=== PATIENT | male | born 1985 | race Caucasian/White ===

== ENCOUNTER 2017-07-11 22:22 | Emergency (ER) | payer OTHER, MEDICAID ==
--- NOTE | 2017-07-11 22:32 | EDPHY ---
H & P Stated Complaint: chills/sweats since Saturday HPI/ROS: HPI CHIEF COMPLAINT: Chills and sweats since Saturday. Muscle aches. Joint pain. HISTORY OF PRESENT ILLNESS: This patient is a 32-year-old male he has significant past medical history bipolar disorder he presents emergency room with approximately 5 days of chills, nighttime sweats, muscle aches and joint pain. Feels like he may have the flu. Additionally reports a cough that is nonproductive. He denies any chest pain or shortness of breath. Denies abdominal pain or back pain. His main complaint is generalized fatigue, chills hot cold flashes. Additionally patient reports sinus congestion. Past Medical History: Bipolar disorder Past Surgical History: No recent surgery. History are wisdom tooth removal. Social History: Denies daily use of tobacco. Endorses marijuana daily as well as alcohol 6 beers per day. Family History: Noncontributory ROS REVIEW OF SYSTEMS: A comprehensive 10 point review of systems is otherwise negative aside from elements mentioned in the history of present illness. Exam Constitutional appears well nontoxic, triage nursing summary reviewed, vital signs reviewed, awake/alert. Eyes normal conjunctivae and sclera, EOMI, PERRLA. HENT normal inspection, atraumatic, moist mucus membranes, no epistaxis, neck supple/ no meningismus, no raccoon eyes. Respiratory clear to auscultation bilaterally, normal breath sounds, no respiratory distress, no wheezing. Cardiovascular rate normal, regular rhythm, no murmur, no edema, distal pulses normal. Gastrointestinal soft, non-tender, no rebound, no guarding, normal bowel sounds, no distension, no pulsatile mass. Genitourinary no CVA tenderness. Musculoskeletal no midline vertebral tenderness, full range of motion, no calf swelling, no tenderness of extremities, no meningismus, good pulses, neurovascularly intact. Skin pink, warm, & dry, no rash, skin atraumatic. Neurologic awake, alert and oriented x 3, AAOx3, moves all 4 extremities equally, motor intact, sensory intact, CN II-XII intact, normal cerebellar, normal vision, normal speech. Psychiatric normal mood/affect. Heme/Lymph/Immune no lymphadenopathy. Differential Diagnosis: Includes but is not limited to in a particular order, viral syndrome, influenza, electrolyte disturbance, dehydration, pneumonia, infection Medical Decision Making: Plan for this patient IV establishment IV fluid bolus , 2 L normal saline, check basic blood work, check influenza, chest x-ray two view to rule out pneumonia, and re-evaluate. Re-evaluation: EKG interpretation by me on record in [facility] system. Impression time of EKG 2301 this is sinus rhythm rate of 74. Left anterior fascicular block present. Otherwise no acute ischemia. No signs of cardiac arrhythmia. Reason for this EKG patient complains of tachycardia. No chest pain. 1221: I did re-evaluate this patient this time is feeling much better. He denies any chest pain or significant shortness of breath. His blood work has been reviewed. Negative influenza. No high white count. Chest x-ray is also been reviewed shows no focal pneumonia bronchitis. Will place this patient on azithromycin sinusitis, albuterol for bronchitis. He understands return emergency room if develops worsening symptoms questions or concerns. He understands drink lots of fluids stay well-hydrated. Source: Patient - Personal History Current Tetanus/Diphtheria Vaccine: Yes Tetanus Vaccine Date: 2010 - Medical/Surgical History Hx Asthma: No Hx Chronic Respiratory Disease: No Hx Diabetes: No Hx Cardiac Disease: No Hx Renal Disease: No Hx Cirrhosis: No Hx Alcoholism: No Hx HIV/AIDS: No Hx Splenectomy or Spleen Trauma: No Other PMH: Surgical- [place] teeth, I&D abscess neck. Medical- Bipolar, anxiety - Social History Smoking Status: Former smoker Constitutional: Initial Vital Signs Temperature (C) 36.7 C 07/11/17 22:24 Heart Rate 85 07/11/17 22:24 Respiratory Rate 18 07/11/17 22:24 Blood Pressure 169/103 H 07/11/17 22:24 O2 Sat (%) 99 07/11/17 22:24 O2 Delivery Mode Room Air Allergies/Adverse Reactions: No Known Allergies Allergy (Verified 08/16/13 11:38) Home Medications: Medication Instructions Recorded [place] Carbonate [[place] 600 mg PO BIDDIUR 09/10/12 Carbonate Cap 300 mg (RX)] clonIDINE [Catapres (RX)] 0.1 mg PO HS 09/10/12 Ambien 07/11/17 Cyproheptadine HCl 07/11/17 Valium 07/11/17 AZITHROMYCIN [Z-PACK] 250 mg PO DAILY #6 tab 07/12/17 Medical Decision Making - Diagnostics Imaging Results: Imaging Impressions Chest X-Ray 07/11/17 22:38 Impression: Mild perihilar bronchitis, without a focal infiltrate. - Data Points Laboratory Results: Laboratory Results 07/11/17 23:10 07/11/17 23:10 07/11/17 07/11/17 07/11/17 23:10 23:10 22:45 WBC 10.93 10^3/uL H 10^3/uL (3.80-9.50) RBC 5.01 10^6/uL 10^6/uL (4.40-6.38) Hgb 16.5 g/dL g/dL (13.7-17.5) Hct 45.1 % % (40.0-51.0) MCV 90.0 fL fL (81.5-99.8) MCH 32.9 pg pg (27.9-34.1) MCHC 36.6 g/dL g/dL (32.4-36.7) RDW 11.9 % % (11.5-15.2) Plt Count 317 10^3/uL 10^3/uL (150-400) MPV 9.3 fL fL (8.7-11.7) Neut % (Auto) 71.5 % % (39.3-74.2) Lymph % (Auto) 20.7 % % (15.0-45.0) Luce % (Auto) 5.3 % % (4.5-13.0) Eos % (Auto) 1.6 % % (0.6-7.6) Baso % (Auto) 0.6 % % (0.3-1.7) Nucleat RBC Rel Count 0.0 % % (0.0-0.2) Absolute Neuts (auto) 7.82 10^3/uL H 10^3/uL (1.70-6.50) Absolute Lymphs (auto) 2.26 10^3/uL 10^3/uL (1.00-3.00) Absolute Monos (auto) 0.58 10^3/uL 10^3/uL (0.30-0.80) Absolute Eos (auto) 0.17 10^3/uL 10^3/uL (0.03-0.40) Absolute Basos (auto) 0.07 10^3/uL 10^3/uL (0.02-0.10) Absolute Nucleated RBC 0.00 10^3/uL 10^3/uL (0-0.01) Immature Gran % 0.3 % % (0.0-1.1) Immature Gran # 0.03 10^3/uL 10^3/uL (0.00-0.10) Sodium 138 mEq/L mEq/L (134-144) Potassium 3.4 mEq/L L mEq/L (3.5-5.2) Chloride 104 mEq/L mEq/L (97-110) Carbon Dioxide 17 mEq/l L mEq/l (22-31) Anion Gap 17 mEq/L H mEq/L (8-16) BUN 9 mg/dL mg/dL (7-23) Creatinine 1.0 mg/dL mg/dL (0.7-1.3) Estimated GFR > 60 Glucose 116 mg/dL H mg/dL (70-100) Calcium 10.2 mg/dL mg/dL (8.5-10.4) Total Bilirubin 0.5 mg/dL mg/dL (0.1-1.4) Conjugated Bilirubin 0.2 mg/dL mg/dL (0.0-0.5) Unconjugated Bilirubin 0.3 mg/dL mg/dL (0.0-1.1) AST 25 IU/L IU/L (17-59) ALT 56 IU/L IU/L (21-72) Alkaline Phosphatase 98 IU/L IU/L (38-126) Total Protein 7.9 g/dL g/dL (6.3-8.2) Albumin 4.8 g/dL g/dL (3.5-5.0) Lipase 369 IU/L H IU/L (23-300) Urine Color Urine Appearance Urine pH Ur Specific [place] Urine Protein Urine Ketones Urine Blood Urine Nitrate Urine Bilirubin Urine Urobilinogen Ur Leukocyte Esterase Urine Glucose Nasal Influenza A PCR NEGATIVE FOR FLU A (NEGATIVE) Nasal Influenza B PCR NEGATIVE FOR FLU B (NEGATIVE) [place] 0.4 mEq/L L mEq/L (0.6-1.2) 07/11/17 22:45 WBC RBC Hgb Hct MCV MCH MCHC RDW Plt Count MPV Neut % (Auto) Lymph % (Auto) [place] % (Auto) Eos % (Auto) Baso % (Auto) Nucleat RBC Rel Count Absolute Neuts (auto) Absolute Lymphs (auto) Absolute Monos (auto) Absolute Eos (auto) Absolute Basos (auto) Absolute Nucleated RBC Immature Gran % Immature Gran # Sodium Potassium Chloride Carbon Dioxide Anion Gap BUN Creatinine Estimated GFR Glucose Calcium Total Bilirubin Conjugated Bilirubin Unconjugated Bilirubin AST ALT Alkaline Phosphatase Total Protein Albumin Lipase Urine Color YELLOW Urine Appearance HAZY Urine pH 7.0 (5.0-7.5) Ur Specific [place] 1.009 (1.002-1.030) Urine Protein NEGATIVE (NEGATIVE) Urine Ketones NEGATIVE (NEGATIVE) Urine Blood NEGATIVE (NEGATIVE) Urine Nitrate NEGATIVE (NEGATIVE) Urine Bilirubin NEGATIVE (NEGATIVE) Urine Urobilinogen NEGATIVE EU EU (0.2-1.0) Ur Leukocyte Esterase NEGATIVE (NEGATIVE) Urine Glucose NEGATIVE (NEGATIVE) Nasal Influenza A PCR Nasal Influenza B PCR [place] Medications Given: Discontinued Medications Sodium Chloride (Ns) 1,000 mls @ 0 mls/hr IV EDNOW ONE; Wide Open PRN Reason: Protocol Stop: 07/11/17 22:39 Last Admin: 07/11/17 23:10 Dose: 1,000 mls Sodium Chloride (Ns) 1,000 mls @ 0 mls/hr IV EDNOW ONE; Wide Open PRN Reason: Protocol Stop: 07/11/17 22:39 Last Admin: 07/11/17 23:11 Dose: 1,000 mls Departure - Departure Disposition: Home, Routine, Self-Care Clinical Impression: Viral syndrome, Bronchitis Sinusitis Qualifiers: Sinusitis location: frontal Chronicity: acute Recurrence: non-recurrent Qualified Code(s): J01.10 - Acute frontal sinusitis, unspecified Condition: Good Instructions: Viral Syndrome (ED), Acute Bronchitis (ED) Additional Instructions: 1. Make sure to drink fluids stay well-hydrated. 2. Return to the emergency room if you have worsening symptoms questions or concerns. Referrals: Chio Knight MD [Primary Care Provider] - As per Instructions Prescriptions: AZITHROMYCIN [Z-PACK] 250 mg PO DAILY #6 tab
[2017-07-11] MEDS ORDERED: NS 1,000 ML IV ONE ×2 (22:38)
[2017-07-11 22:53] LABS: COLOR YELLOW; LEUKOCYTE ESTERASE,URINE NEGATIVE (NEGATIVE); NITRITE,URINE NEGATIVE (NEGATIVE)
--- NOTE | 2017-07-11 23:04 | CPEKG ---
Heart Rate: 74 RR Interval: 811 P-R Interval: 180 QRSD Interval: 98 QT Interval: 380 QTC Interval: 422 P [place]: 76 QRS [place]: -55 T Wave [place]: 58 EKG Severity - ABNORMAL ECG - EKG Impression: SINUS RHYTHM EKG Impression: LAD, CONSIDER LEFT ANTERIOR FASCICULAR BLOCK Electronically Signed By: Rupesh Jay 12-Jul-2017 20:38:49
[2017-07-11 23:17] LABS: % IMMATURE GRANULYOCYTES 0.3 % (0.0-1.1); ABSOLUTE IMMATURE GRANULOCYTES 0.03 10^3/uL (0.00-0.10); ADD DIFF? NO; ADD MORPH? NO; ADD SCAN? NO; ATYPICAL LYMPHOCYTE FLAG 10 (0-99); FRAGMENT RBC FLAG 0 (0-99); HEMATOCRIT 45.1 % (40.0-51.0); HEMOGLOBIN 16.5 g/dL (13.7-17.5); LEFT SHIFT FLG 0 (0-99); LIPEMIA HEMOLYSIS FLAG 90 (0-99); MEAN CELL HEMOGLOBIN 32.9 pg (27.9-34.1); MEAN CELL HEMOGLOBIN CONCENTR. 36.6 g/dL (32.4-36.7); MEAN PLATELET VOLUME 9.3 fL (8.7-11.7); PLATELET CLUMPS FLAG 20 (0-99); PLATELET COUNT 317 10^3/uL (150-400); RED BLOOD CELL COUNT 5.01 10^6/uL (4.40-6.38); RED CELL DISTRIBUTION WIDTH 11.9 % (11.5-15.2)
[2017-07-11 23:36] LABS: ALANINE AMINOTRANSFERASE 56 IU/L (21-72); ALBUMIN 4.8 g/dL (3.5-5.0); ALKALINE PHOSPHATASE 98 IU/L (38-126); ANION GAP 17 mEq/L (8-16); ASPARTATE AMINOTRANSFERASE 25 IU/L (17-59); BILIRUBIN,TOTAL 0.5 mg/dL (0.1-1.4); BILIRUBIN-CONJUGATED 0.2 mg/dL (0.0-0.5); BILIRUBIN-UNCONJUGATED 0.3 mg/dL (0.0-1.1); CALCIUM 10.2 mg/dL (8.5-10.4); CARBON DIOXIDE 17 mEq/l (22-31); CHLORIDE 104 mEq/L (97-110); GLOMERULAR FILTRATION RATE > 60; GLUCOSE 116 mg/dL (70-100); LITHIUM 0.4 mEq/L (0.6-1.2); POTASSIUM 3.4 mEq/L (3.5-5.2); SODIUM 138 mEq/L (134-144); TOTAL PROTEIN 7.9 g/dL (6.3-8.2)
[2017-07-12 00:23] VITALS: BP 146/75; PULSE 73; RESP 15; TEMP 98.2; O2SAT 96
[2017-07-12] MEDS ORDERED: ALBUTEROL INH PREPACK MDI TAKEHOME ONE (00:23)
== END 2017-07-12 00:33 | disposition home or self-care (01) ==
PROC: 3E0337Z Introduction of Electrolytic and Water Balance Substance into Peripheral Vein, Percutaneous Approach (ICD-10-PCS; principal; 2017-07-11)
DX: J20.9 Acute bronchitis, unspecified (principal); B34.9 Viral infection, unspecified; J01.10 Acute frontal sinusitis, unspecified; E86.9 Volume depletion, unspecified; Z87.891 Personal history of nicotine dependence